=== PATIENT | male | born 1955 | race Two or more races ===

== ENCOUNTER 2023-03-15 21:43 | Emergency (ER) | payer MEDICARE ==
[~2023-03-15] VITALS: Ht 172.7 cm; Wt 73.9 kg
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
[2023-03-15] MEDS ORDERED: HYDROCODONE/APAP 5/325MG TABLET ONE (22:10)
[2023-03-15] MEDS ORDERED: IBUPROFEN 600 MG TABLET ONE (22:11)
--- NOTE | 2023-03-15 22:17 | NUR ---
PT REFUSED MD ARNOLD AWARE
--- NOTE | 2023-03-15 22:19 | NUR ---
PT TAKEN TO CT
[2023-03-15] MEDS ORDERED: IBUPROFEN 600 MG TABLET PO ONE (22:30)
[2023-03-15] MEDS ORDERED: HYDROCODONE/APAP 5/325MG TABLET PO ONE (22:30)
--- NOTE | 2023-03-15 22:38 | NUR ---
PT RETURNED FROM CT
[2023-03-15] MEDS ORDERED: IBUP-1953 PO ×2 (23:50→23:55)
[2023-03-16 00:02] VITALS: BP 144/81
== END 2023-03-16 00:02 | disposition home or self-care (01) ==
LOC: ER 21:47 → EDBD 21:47 → ER 03-16 00:02
DX: S16.1XXA Strain of muscle, fascia and tendon at neck level, initial encounter (principal); Z95.1 Presence of aortocoronary bypass graft; Z79.899 Other long term (current) drug therapy; V49.9XXA Car occupant (driver) (passenger) injured in unspecified traffic accident, initial encounter; Y93.89 Activity, other specified; Y92.89 Other specified places as the place of occurrence of the external cause; Y99.8 Other external cause status
CPT/HCPCS: 99284; 72125; 70450; L0172